=== PATIENT | male | born 1930 | race Caucasian/White ===

== ENCOUNTER 2022-11-18 09:59 | Emergency (ER) | payer MEDICARE, BC ==
[~2022-11-18] VITALS: Ht 172.7 cm; Wt 66.2 kg
[2022-11-18] MEDS ORDERED: NEOMY/BACITRA/POLYMYXIN B OINT UD PACKET TP ONE ×2 (11:00→11:12)
[2022-11-18 11:34] VITALS: BP 108/48; O2SAT 96
== END 2022-11-18 11:34 | disposition home or self-care (01) ==
LOC: ER 10:03
DX: S00.81XA Abrasion of other part of head, initial encounter (principal); W06.XXXA Fall from bed, initial encounter; Y93.89 Activity, other specified; Y92.89 Other specified places as the place of occurrence of the external cause; Y99.8 Other external cause status
CPT/HCPCS: 70450; A4663